=== PATIENT | male | born 1985 | race Two or more races ===

== ENCOUNTER 2024-11-01 03:02 | Emergency (ER) | payer OTHER ==
[~2024-11-01] VITALS: Ht 182.9 cm; Wt 152.0 kg
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
[2024-11-01] MEDS ORDERED: TIZA-142 PO (06:05)
[2024-11-01] MEDS ORDERED: IBUP-1456 PO (06:05)
[2024-11-01 07:20] VITALS: BP 126/94; PULSE 78; RESP 18; TEMP 97.8; O2SAT 95
[2024-11-01] MEDS: KETOROLAC TROMETH 60MG/2ML VIAL IM ONE (07:29)
[2024-11-01] MEDS: HYDROcodone-ACET 5/325MG TAB PO ONE (07:29)
== END 2024-11-01 07:47 | disposition home or self-care (01) ==
LOC: ER 03:02 → EDBD 03:02 → ER 07:47
DX: S13.4XXA Sprain of ligaments of cervical spine, initial encounter (principal); S20.211A Contusion of right front wall of thorax, initial encounter; V89.2XXA Person injured in unspecified motor-vehicle accident, traffic, initial encounter; Y93.89 Activity, other specified; Y92.89 Other specified places as the place of occurrence of the external cause; Y99.8 Other external cause status
CPT/HCPCS: 71101; 72040; 96372; 99284; J1885